=== PATIENT | male | born 1965 | race Caucasian/White ===

== ENCOUNTER 2017-09-19 11:39 | Emergency (ER) | payer BC ==
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
== END 2017-09-19 13:36 | disposition home or self-care (01) ==
LOC: ERS 11:39
DX: S02.632A Fracture of coronoid process of left mandible, initial encounter for closed fracture (principal); S02.19XA Other fracture of base of skull, initial encounter for closed fracture; S02.40FA Zygomatic fracture, left side, initial encounter for closed fracture; Y04.0XXA Assault by unarmed brawl or fight, initial encounter
CPT/HCPCS: 70450; 70486; 72125